=== PATIENT | male | born 1985 | race Caucasian/White ===

== ENCOUNTER 2023-01-07 09:15 | Emergency (ER) | payer SELFPAY ==
[~2023-01-07] VITALS: Ht 172.7 cm; Wt 68.0 kg
[2023-01-07 09:15] VITALS: BP 131/86
[2023-01-07] MEDS ORDERED: KEPPRA 100 ML IV STA (09:33)
[2023-01-07] MEDS ORDERED: KEPPRA 100 ML IV ONE (09:37)
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
[2023-01-07 09:59] LABS: BASOPHIL % 0.2 % (0.0-0.2); EOSINOPHIL % 0.6 % (0.0-5.0); LYMPHOCYTES # 0.55 10^3/uL1 (1.0-4.8); LYMPHOCYTES % 11.4 % (24.0-44.0); MEAN CORP HGB 33.5 pg (26-34); MONOCYTES # 0.3 10^3/uL (0.3-0.8); MONOCYTES % 5.4 % (5.0-12.0); NEUTROPHILS % 82.2 % (41.0-85.0); RED CELL DISTRIBUTION WIDTH 11.7 % (11.5-14.5)
[2023-01-07] MEDS ORDERED: NS 1000ML 1,000 ML ONE (10:11)
[2023-01-07 10:13] LABS: CARBON DIOXIDE 23.8 mmol/L (20.0-32)
[2023-01-07] MEDS ORDERED: NS 1000ML 1,000 ML IV ONE (10:30)
--- NOTE | 2023-01-07 11:10 | PCM.EKG ---
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
--- NOTE | 2023-01-07 11:12 | DIREP ---
PROCEDURE:CHEST 1 VIEW COMPARISON:None. INDICATIONS:Seizure FINDINGS: LUNGS/PLEURA:No significant pulmonary parenchymal abnormalities. No effusions. No pneumothorax. VASCULATURE:Normal. Unremarkable pulmonary vasculature. CARDIAC:Normal. No cardiac silhouette abnormality or cardiomegaly. MEDIASTINUM:Normal. No visible mass or adenopathy. BONES:Normal. No fracture or visible bony lesion. OTHER:Negative. CONCLUSION:Normal examination. Dictated by: Pavel Pak DO on 01/07/2023 at 11:10 AM
--- NOTE | 2023-01-07 11:27 | DIREP ---
PROCEDURE:CT HEAD OR BRAIN W/O CONTRAST COMPARISON:None. INDICATIONS:Seizure TECHNIQUE:CT images were created without intravenous contrast. FINDINGS: VENTRICLES:The ventricles are normal in size and configuration. CEREBRUM:Normal cerebral morphology with appropriate ulrich white matter differentiation. CEREBELLUM:Negative. BRAINSTEM:Negative. BASAL CISTERNS:Negative. HEMORRHAGE (Vol L*W*H*.52):No MASS LESION:No ACUTE INFARCT:No SKULL:Normal. SINUSES:Normal. OTHER:None CONCLUSION:Normal examination. Dictated by: Pavel Pak DO on 01/07/2023 at 11:22 AM
== END 2023-01-07 12:08 | disposition home or self-care (01) ==
LOC: ER 09:15
DX: R56.9 Unspecified convulsions (principal); E86.0 Dehydration
CPT/HCPCS: 99285; 96360; 70450; 71045; 80053; 85025; 36415; 84484; 83735; 93005; J7030; J1953